=== PATIENT | female | born 1960 | race Caucasian/White ===

== ENCOUNTER 2017-04-23 06:16 | Day surgery (SDC) | payer BC ==
[~2017-04-23] VITALS: Ht 165.1 cm; Wt 106.6 kg
[~2017-04-23 06:16] MED LIST: DEXILANT60 MG PO; ETODOLAC400 MG PO; IRON325 M1 PO; LEVOTHYROXINE200 MC1 PO; LISINOPRIL10 MG PO; METOPROLOL SUCC50 MG PO; MIRAPEX0.5 MG PO; NEURONTIN 300300 MG PO; NORCO 5-325 TA1 EACH PO; NORVASC 5 MG TAB5 MG PO; PROCTOCORT30 MG PR; SERTRALINE HCL50 MG PO
[2017-04-23] MEDS ORDERED: EFFEXOR 37.537.5 MG PO (07:15)
[2017-04-23] MEDS ORDERED: ULTRAM50 MG PO (07:16)
[2017-04-23] MEDS ORDERED: MIRAPEX0.25 MG PO (07:17)
[2017-04-23] MEDS ORDERED: VITAMIN D250000 UNIT PO (07:17)
[2017-04-23] MEDS ORDERED: PROTONIX 40 MG40 M1 PO (07:18)
[2017-04-24 02:41] LABS: HEMOGLOBIN 13.1 gm/dl (12.3-15.3)
[2017-04-24] MEDS ORDERED: NORCO 10-325 T1 EACH PO (11:42)
[2017-04-24] MEDS ORDERED: IBUPROFEN600 MG PO (11:44)
[2017-04-24] MEDS ORDERED: COLACE 100MG C100 MG PO (11:46)
== END 2017-04-24 12:42 | disposition home or self-care (01) ==
LOC: OR 06:16 → OB 17:32 → OR 04-24 12:42
PROVIDERS: Obstetrics & Gynecology
PROC: 0UTC4ZZ Resection of Cervix, Percutaneous Endoscopic Approach (ICD-10-PCS; 2017-04-23)
PROC: 0UT24ZZ Resection of Bilateral Ovaries, Percutaneous Endoscopic Approach (ICD-10-PCS; 2017-04-23)
PROC: 0UT74ZZ Resection of Bilateral Fallopian Tubes, Percutaneous Endoscopic Approach (ICD-10-PCS; 2017-04-23)
PROC: 0UT94ZZ Resection of Uterus, Percutaneous Endoscopic Approach (ICD-10-PCS; principal; 2017-04-23 07:30)
DX: N72 Inflammatory disease of cervix uteri (principal); D25.0 Submucous leiomyoma of uterus; N83.202 Unspecified ovarian cyst, left side; N83.201 Unspecified ovarian cyst, right side; E03.9 Hypothyroidism, unspecified; E78.2 Mixed hyperlipidemia; I10 Essential (primary) hypertension; M19.90 Unspecified osteoarthritis, unspecified site; G25.81 Restless legs syndrome; G89.29 Other chronic pain; Z79.899 Other long term (current) drug therapy; Z90.49 Acquired absence of other specified parts of digestive tract; Z86.2 Personal history of diseases of the blood and blood-forming organs and certain disorders involving the immune mechanism; Z86.69 Personal history of other diseases of the nervous system and sense organs; Z23 Encounter for immunization
CPT/HCPCS: 36415; 85014; 85018; J0690; J1100; J1885; J2250; J2270; J2405; J2550; J2710; J2795; J3010; J7120; Q0162; Q2039

== ENCOUNTER → 2020-08-10 | Outpatient (CLI) | payer BC ==
[~2020-08-10] MED LIST changes: +ALORA1 EAC2 TD; +AMMONIUM LACTA225 GM TP; +ASPIRIN 325MG325 MG PO; +CELEBREX 200MG200 MG PO; +COLACE 100MG C100 MG PO; +COMPOUND CREAM TD; +DULOXETINE HCL60 MG PO; +EFFEXOR 37.537.5 MG PO; +FIORINAL 50-321 EACH PO; +FLEXERIL 10 MG10 MG PO; +GABAPENTIN400 MG PO; +IBUPROFEN600 MG PO; +IBUPROFEN800 MG PO; +KEFLEX CAP 500500 MG PO; +LEXAPRO20 MG PO; +LINZESS145 MCG PO; +LISINOPRIL-HCT1 EAC1 PO; +LODINE CAP 300300 MG PO; +LOVENOX40 MG/0.4 SQ; +MIRAPEX0.25 MG PO; +NORCO 10-325 T1 EACH PO; +NORCO 7.5-3251 EACH PO; +NORVASC10 MG PO; +PRAMIPEXOLE DI0.5 MG PO; +PROGESTERONE100 MG PO; +PROTONIX 40 MG40 M1 PO; +PROVENTIL HFA6.7 GM INH; +QUETIAPINE FUMA50 MG PO; +RANITIDINE HCL300 M1 PO; -SERTRALINE HCL50 MG PO; +SYNTHROID200 MCG PO; +TOPROL XL50 MG PO; +ULTRAM50 MG PO; +VITAMIN C500 M1 PO; +VITAMIN D250000 UNIT PO; +VOLTAREN100 GM TP; +ZITHROMAX250 MG PO; +ZOFRAN ODT 4 MG4 MG PO; +ZOFRAN4 MG PO
== END ==
LOC: HEART 5 07:59
DX: R07.9 Chest pain, unspecified (principal)
CPT/HCPCS: 78452; 93017; 93306; A9502; J2785

== ENCOUNTER → 2020-12-11 | Outpatient (CLI) | payer BC | LOC: NM 08:38 | DX: R11.0 Nausea (principal); K31.84 Gastroparesis | CPT/HCPCS: 78264; A9541 ==

== ENCOUNTER → 2021-07-24 | Outpatient (CLI) | payer BC | LOC: MAMO 06-06 09:30 | DX: Z12.31 Encounter for screening mammogram for malignant neoplasm of breast (principal) | CPT/HCPCS: 77063; 77067 ==

== ENCOUNTER → 2021-11-08 | Outpatient (CLI) | payer BC | LOC: KOH-I 10:46 | DX: M54.2 Cervicalgia (principal); M47.812 Spondylosis without myelopathy or radiculopathy, cervical region | CPT/HCPCS: 72040 ==